=== PATIENT | female | born 1990 | race American Indian/Alaskan Native ===

== ENCOUNTER → 2024-01-27 08:25 | Outpatient (CLI) | payer OTHER, SELFPAY ==
[2024-01-27 09:20] LABS: Add Manual Diff / Slide Review NO; Basophils Absolute Auto 0 /uL (0-100); Basophils Percent Auto 0.7 % (0-2); Eosinophils Absolute Auto 100 /uL (0-450); Eosinophils Percent Auto 1.4 % (2-4); Hematocrit 42.4 % (36-46); Hemoglobin 14.4 g/dL (12.0-16.0); Lymphocytes Absolute Auto 1900 /uL (1100-4500); Lymphocytes Percent Auto 30.2 % (25-40); Mean Corpuscular Hemoglobin 29.9 PG (26-34); Mean Corpuscular Volume 87.8 fL (80-100); Monocytes Absolute Auto 400 /uL (0-900); Monocytes Percent Auto 7.2 % (3-14); Neutrophils Absolute Auto 3800 /uL (1500-7000); Neutrophils Percent Auto 60.5 % (50-75); Platelet Count 269 X10^3/uL (150-400); Red Blood Cell Count 4.83 X10^6/uL (4.0-5.2); Red Cell Distribution Width 12.8 % (11.6-14.8); White Blood Cell Count 6.2 X10^3/uL (4.5-11.0)
[2024-01-27 09:30] LABS: Alanine Aminotransferase 18 IU/L (<35); Albumin 4.8 g/dL (3.5-5.0); Albumin Globulin Ratio 1.4 (1.0-2.8); Alkaline Phosphatase 52 U/L (38-126); Aspartate Aminotransferase 21 IU/L (14-36); BUN Creatinine Ratio 16.4 (6-22); Bilirubin Total 1.3 mg/dL (0.2-1.3); Blood Urea Nitrogen 11 mg/dL (7-17); Calcium 9.6 mg/dL (8.4-10.2); Carbon Dioxide 28 mmol/L (22-32); Chloride 105 mmol/L (98-107); Estimated Glomerular Filt Rate > 60 mL/min (>60); Globulin 3.4 g/dL (1.7-4.1); Glucose 85 mg/dL (70-100); HEMOLYSIS < 15 (0-50); Magnesium 2.1 mg/dL (1.6-2.3); Potassium 3.9 mmol/L (3.4-5.1); Sodium 141 mmol/L (137-145); Total Protein 8.2 g/dL (6.3-8.2)
[2024-01-27 09:32] LABS: Iron 155 ug/dL (37-170)
[2024-01-27 10:02] LABS: Testosterone 46.3 ng/dL (5.71-77.0)
[2024-01-27 10:04] LABS: Thyroid Stimulating Hormone 1.35 uIU/mL (0.47-4.68)
[2024-01-27 10:35] LABS: Folate > 20.0 ng/mL (2.76-20.0); Vitamin B12 769 pg/mL (239-931)
[2024-01-27 11:03] LABS: Hemoglobin A1C% w Est Avg Glu 5.2 % (4.0-6.0)
[2024-01-29 13:39] LABS: Zinc 92 ug/dL (44-115)
== END ==
LOC: LAB 08:26
PROVIDERS: PCP Family Medicine; Referring Provider Family Medicine; Visit Provider Family Medicine
DX: Z13.21 Encounter for screening for nutritional disorder (principal); Z13.0 Encounter for screening for diseases of the blood and blood-forming organs and certain disorders involving the immune mechanism; Z13.29 Encounter for screening for other suspected endocrine disorder; Z13.1 Encounter for screening for diabetes mellitus; R63.5 Abnormal weight gain; E66.9 Obesity, unspecified; N97.9 Female infertility, unspecified; Z87.2 Personal history of diseases of the skin and subcutaneous tissue; Z83.3 Family history of diabetes mellitus
CPT/HCPCS: 36415; 80053; 82306; 82607; 82627; 82746; 83036; 83540; 83735; 84403; 84443; 84597; 84630; 85025

== ENCOUNTER → 2025-01-15 16:12 | Outpatient (CLI) | payer OTHER, SELFPAY ==
[2025-01-15 16:58] LABS: Add Manual Diff / Slide Review NO; Basophils Absolute Auto 100 /uL (0-100); Eosinophils Absolute Auto 100 /uL (0-450); Eosinophils Percent Auto 1.3 % (2-4); Hematocrit 36.9 % (36-46); Hemoglobin 12.7 g/dL (12.0-16.0); Lymphocytes Absolute Auto 2300 /uL (1100-4500); Lymphocytes Percent Auto 24.6 % (25-40); Mean Corpuscular HGB Conc 34.6 % (30-36); Mean Corpuscular Hemoglobin 30.8 PG (26-34); Mean Corpuscular Volume 89.2 fL (80-100); Monocytes Absolute Auto 700 /uL (0-900); Neutrophils Absolute Auto 6100 /uL (1500-7000); Neutrophils Percent Auto 66.1 % (50-75); Platelet Count 268 X10^3/uL (150-400); Red Blood Cell Count 4.13 X10^6/uL (4.0-5.2); Red Cell Distribution Width 12.8 % (11.6-14.8); White Blood Cell Count 9.2 X10^3/uL (4.5-11.0)
[2025-01-15 17:02] LABS: Appearance Urine UA CLEAR; Bilirubin Urine UA NEGATIVE (NEGATIVE); Color Urine UA YELLOW; Glucose Urine UA NEGATIVE (Negative); Ketones Urine UA NEGATIVE (NEGATIVE); Leukocyte Esterase Urine UA NEGATIVE (NEGATIVE); Nitrite Urine UA NEGATIVE (Negative); Occult Blood Urine UA NEGATIVE (Negative); Protein Urine UA NEGATIVE (Negative); Urobilinogen Urine UA 0.2 E.U./dL (0.2)
[2025-01-15 17:08] LABS: pH Urine UA 6.5 (4.5-8.0)
[2025-01-15 17:14] LABS: Hemoglobin A1C% w Est Avg Glu 5.1 % (4.0-6.0)
[2025-01-15 17:32] LABS: Natera Collection Specimen Collected
[2025-01-16 17:23] LABS: Hepatitis B Surface Antigen NEGATIVE s/c (NEGATIVE); Rubella Antibody IgG 55.4 IU/mL (>15)
[2025-01-16 17:35] LABS: HIV 1 & 2 Ab/Ag 4th Gen Combo NEGATIVE (NEGATIVE); Hep C Virus Ab w/Reflex Quant NEGATIVE s/c (NEGATIVE)
[2025-01-17 03:08] LABS: RPR Screen Non Reactive (Non Reactive)
[2025-01-17 04:11] LABS: Varicella IgG Antibody Reactive (Non Reactive)
== END ==
PROVIDERS: PCP Family Medicine; Referring Provider Student in an Organized Health Care Education/Training Program; Visit Provider Student in an Organized Health Care Education/Training Program
DX: Z34.00 Encounter for supervision of normal first pregnancy, unspecified trimester (principal); Z86.32 Personal history of gestational diabetes
CPT/HCPCS: 80055; 81003; 83036; 86787; 86803; 86850; 86900; 86901; 87086; 87389

== ENCOUNTER → 2025-03-24 14:18 | Outpatient (CLI) | payer OTHER, SELFPAY ==
--- NOTE | 2025-03-24 14:20 | DI.US.S_ITS ---
PROCEDURE: US OB >= 14 WEEKS FETUS INDICATIONS: 20 week anatomy scan OUTSIDE/PRIOR DATING DATA: Last menstrual period (LMP): 11/02/2024 LMP-based estimated date of delivery (VICKY): 08/09/2025 First dating scan (date and location): 01/06/2025 Estimated date of delivery (VICKY) from first dating scan: 08/08/2025 The calculations are made using the working VICKY of 08/09/2025. TECHNIQUE: Real-time scanning was performed of the fetus, with image documentation and biometric measurements. Endovaginal scanning: Not performed COMPARISON: None. FINDINGS: General: A single living intrauterine gestation is present. Presentation: Vertex Placenta: Placental position is posterior, without previa. Amniotic fluid index: 16.7 cm, normal range is 5-24 cm. Single deepest vertical pocket is 5.1 cm. heart rate: 140 beats per minute. Maternal cervical canal: Closed and measures 3.6 cm long. Normal lower limit is 2.5 cm. biometrics: Biparietal diameter: 4.7 cm, 20 weeks, 1 day. Head circumference: 17.8 cm, 20 weeks, 2 days. Abdominal circumference: 16.3 cm, 21 weeks, 3 days. Femur length: 3.3 cm, 20 weeks, 2 days. Clinically estimated gestational age: 20 weeks, 2 days. Composite gestational age from present scan: 20 weeks, 4 days. Estimated weight and percentile: 377 g, 73%. Anatomic survey: Neuro: Ventricles are non-dilated at less than 10 mm. Cisterna magna is normal at 3-11 mm. Cerebellum is normal in size and morphology. Nuchal skin fold: Normal at less than 6 mm between 14-21 weeks gestational age. Face: Nose and lips, facial profile are normal. Spine: No evidence for spina bifida. Heart: 4-chambered heart is present, with normal ventricular outflow tracts. Diaphragm: Diaphragm is intact. Stomach: Left-sided stomach is present. Kidneys: No hydronephrosis. Normal is less than 5 mm in 2nd trimester, less than 7 mm in 3rd trimester. Cord: 3-vessel cord has orthotopic insertion. Bladder: Normal in size. Extremities: All 4 extremities identified. IMPRESSION: 1. Single live intrauterine gestation with fetus in vertex presentation. heart rate is 140 beats per minute. Normal JOEY 16.7 cm. Normal growth with estimated weight of 73%. 2. Normal anatomic survey. We strive to produce accurate, complete, and clear reports of imaging services. To assist us in improving patient care, this report was composed using standard report templates and voice recognition software. Therefore, it may contain abnormal punctuation, insertions and/or omissions. Occasional wrong-word or sound-alike substitutions may occur. Though we review the report and make efforts to correct it, we do recommend that the report be read carefully in proper context to recognize any text inaccuracies. Dictated by: Alfredo Morgan M.D. on 03/24/2025 at 20:59 Approved by: Alfredo Morgan M.D. on 03/24/2025 at 21:01
== END ==
PROVIDERS: PCP Family Medicine; Referring Provider Student in an Organized Health Care Education/Training Program; Visit Provider Student in an Organized Health Care Education/Training Program
DX: Z36.89 Encounter for other specified antenatal screening (principal); Z3A.20 20 weeks gestation of pregnancy
CPT/HCPCS: 76811

== ENCOUNTER → 2025-05-17 08:39 | Outpatient (CLI) | payer OTHER, SELFPAY ==
[2025-05-17 10:44] LABS: Hematocrit 35.1 % (36-46); Hemoglobin 11.9 g/dL (12.0-16.0)
[2025-05-17 10:56] LABS: GTT (PREG) 1 Hour PP 50gm Dose 174 mg/dL (76-139)
== END ==
PROVIDERS: PCP Family Medicine; Referring Provider Student in an Organized Health Care Education/Training Program; Visit Provider Student in an Organized Health Care Education/Training Program
DX: Z34.00 Encounter for supervision of normal first pregnancy, unspecified trimester (principal)
CPT/HCPCS: 36415; 82950; 85014; 85018; 86850; 86900; 86901

== ENCOUNTER → 2025-06-02 07:58 | Outpatient (CLI) | payer OTHER, SELFPAY ==
[2025-06-02 08:49] LABS: Glucose Fasting Gestational 89 mg/dL (76-95)
[2025-06-02 10:52] LABS: Glucose 1 Hour Gest 165 mg/dL (76-180)
[2025-06-02 10:56] LABS: Glucose 2 Hour Gest 177 mg/dL (76-155)
[2025-06-02 11:17] LABS: Glucose Tol Interp,Gestational INTERPRETATION
[2025-06-02 12:45] LABS: Glucose 3 Hour Gest 127 mg/dL (76-140)
== END ==
PROVIDERS: PCP Family Medicine; Referring Provider Student in an Organized Health Care Education/Training Program; Visit Provider Student in an Organized Health Care Education/Training Program
DX: O99.810 Abnormal glucose complicating pregnancy (principal)
CPT/HCPCS: 36415; 82951; 82952

== ENCOUNTER → 2025-06-17 15:48 | Outpatient (CLI) | payer OTHER, SELFPAY ==
--- NOTE | 2025-06-17 15:49 | DI.US.S_ITS ---
PROCEDURE: US OB LIMITED INDICATIONS: LGA OUTSIDE/PRIOR DATING DATA: Last menstrual period (LMP): 11/02/2024. LMP-based estimated date of delivery (VICKY): 08/09/2025. First dating scan (date and location): 03/14/2025. Estimated date of delivery (VICKY) from first dating scan: 08/09/2025. TECHNIQUE: Real-time scanning was performed of the fetus, with image documentation and biometric measurements. Endovaginal scanning: COMPARISON: None. FINDINGS: General: A single living intrauterine gestation is present. Presentation: Vertex. Placenta: Placental position is posterior , without previa. Amniotic fluid index: 9.4 cm, normal range is 5-24 cm. Single deepest vertical pocket is 3.9 cm. heart rate: 142 beats per minute. Maternal cervical canal: 2.6 cm long. Normal lower limit is 2.5 cm. biometrics: Biparietal diameter: 7.9 Head circumference: 29.7 Abdominal circumference: 30.7 Femur length: 6.1 Clinically estimated gestational age: 32 weeks 6 days Composite gestational age from present scan: 32 weeks 3 days Estimated weight and percentile: 2222 g, 76th percentile Other: Not applicable. IMPRESSION: Single live intrauterine corresponds with an estimated gestational age of 32 weeks and 3 days. We strive to produce accurate, complete, and clear reports of imaging services. To assist us in improving patient care, this report was composed using standard report templates and voice recognition software. Therefore, it may contain abnormal punctuation, insertions and/or omissions. Occasional wrong-word or sound-alike substitutions may occur. Though we review the report and make efforts to correct it, we do recommend that the report be read carefully in proper context to recognize any text inaccuracies. Dictated by: Antoinette Diaz M.D. on 06/18/2025 at 11:47 Approved by: Antoinette Diaz M.D. on 06/18/2025 at 11:52
== END ==
LOC: US 15:49
PROVIDERS: PCP Family Medicine; Referring Provider Student in an Organized Health Care Education/Training Program; Visit Provider Student in an Organized Health Care Education/Training Program
DX: O36.63X0 Maternal care for excessive fetal growth, third trimester, not applicable or unspecified (principal); Z3A.32 32 weeks gestation of pregnancy
CPT/HCPCS: 76815

== ENCOUNTER 2025-07-03 16:14 | Outpatient (CLI) | payer OTHER, SELFPAY ==
[2025-07-03 16:55] LABS: Appearance Urine UA CLEAR; Bilirubin Urine UA NEGATIVE (NEGATIVE); Color Urine UA YELLOW; Glucose Urine UA NEGATIVE (Negative); Ketones Urine UA NEGATIVE (NEGATIVE); Leukocyte Esterase Urine UA 2+ (NEGATIVE); Nitrite Urine UA NEGATIVE (Negative); Occult Blood Urine UA NEGATIVE (Negative); Protein Urine UA NEGATIVE (Negative); Specific Gravity Urine UA 1.010 (1.000-1.035); Urobilinogen Urine UA 0.2 E.U./dL (0.2)
[2025-07-03 17:00] LABS: pH Urine UA 7.0 (4.5-8.0)
[2025-07-03 17:02] LABS: Culture Indicated Urine Specimen Cultured
== END 2025-07-03 18:10 | disposition home or self-care (01) ==
LOC: LABOR 17:41 → OB 07-04 08:15
PROVIDERS: PCP Family Medicine; Referring Provider Student in an Organized Health Care Education/Training Program; Visit Provider Student in an Organized Health Care Education/Training Program
DX: O26.893 Other specified pregnancy related conditions, third trimester (principal); R10.30 Lower abdominal pain, unspecified; Z3A.35 35 weeks gestation of pregnancy
CPT/HCPCS: 59025; 81001; 87086; 87210; G0378; G0379